=== PATIENT | male | born 1990 | race Caucasian/White ===

== ENCOUNTER 2016-06-03 23:58 | Emergency (ER) | payer OTHER ==
[2016-06-04 00:30] VITALS: TEMP 99
--- NOTE | 2016-06-04 01:29 | XR ---
EXAM: XR Right Ribs and AP Chest, 3 or More Views. CLINICAL HISTORY: Reason: Pain TECHNIQUE: Frontal and oblique views of the right ribs and frontal view of the chest. COMPARISON: No relevant prior studies available. FINDINGS: Lungs: Unremarkable. No consolidation. Pleural space: Unremarkable. No pneumothorax. Heart: Unremarkable. No cardiomegaly. Mediastinum: Unremarkable. Bones/joints: Unremarkable. No acute fracture. IMPRESSION: Normal right rib x-rays.
[2016-06-04] MEDS ORDERED: IBUPROFEN 400 MG TAB PO STA (02:31)
--- NOTE | 2016-06-04 02:31 | ED ---
General Adult HPI - General Chief complaint: Recheck/Abnormal Lab/Rx Stated complaint: Poss Broken Rib Time Seen by Provider: 06/04/16 02:18 Source: patient Mode of arrival: ambulatory Limitations: no limitations - History of Present Illness Initial comments: This patient is a 26-year-old man who presents to be evaluated for right anterior chest wall pain. The patient states that on he was leaning over a 2 x 4 reaching down into a chicken coop and he felt a pop in the chest wall. Since that time he has had sharp pains that are brought on by movement or if he takes a very large breath. The patient denies any associated symptoms. He is not having fevers or chills, dyspnea, productive cough or hemoptysis, palpitations. -: days(s) Location: chest Radiation: non-radiation Quality: aching, sharp Consistency: constant Improves with: none Worsens with: movement Associated Symptoms: denies other symptoms Treatments Prior to Arrival: none - Related Data Previous Rx's Medication Instructions Recorded Cephalexin [Keflex] 500 mg PO Q6HR #40 cap 07/18/13 Hydrocodone/Acetaminophen [Otho 1 each PO Q6HR PRN #20 tab 06/04/16 5-325] Ibuprofen [Motrin] 800 mg PO Q8HR PRN #20 tab 06/04/16 Allergies Allergy/AdvReac Type Severity Reaction Status Date / Time No Known Allergies Allergy Verified 06/04/16 00:29 Review of Systems ROS Statement: Those systems with pertinent positive or pertinent negative responses have been documented in the HPI. ROS Other: All systems not noted in ROS Statement are negative. Constitutional: Denies: fever, chills Respiratory: Denies: cough, dyspnea, hemoptysis Cardiovascular: Reports: as per HPI, chest pain. Denies: palpitations, dyspnea on exertion, edema, syncope Gastrointestinal: Denies: abdominal pain, vomiting, diarrhea, melena, hematochezia Genitourinary: Denies: hematuria Musculoskeletal: Denies: back pain Hematological/Lymphatic: Denies: easy bleeding Past Medical History Additional Past Medical History / Comment(s): BACK PAIN History of Any Multi-Drug Resistant Organisms: None Reported Past Surgical History: Hernia Repair Past Psychological History: No Psychological Hx Reported Smoking Status: Current every day smoker Past Alcohol Use History: Rare Past Drug Use History: Marijuana General Exam Limitations: no limitations General appearance: alert, in no apparent distress, obese Head exam: Present: atraumatic, normocephalic Respiratory exam: Present: normal lung sounds bilaterally, chest wall tenderness (There is some tenderness over probably ribs 6 and 7 anteriorly. No palpable deformity.). Absent: respiratory distress, wheezes, rales, rhonchi, stridor, accessory muscle use, decreased breath sounds, prolonged expiratory Cardiovascular Exam: Present: regular rate, normal rhythm, normal heart sounds. Absent: systolic murmur, diastolic murmur, rubs, gallop GI/Abdominal exam: Present: soft. Absent: distended, tenderness, guarding, rebound, mass Extremities exam: Present: normal inspection, normal capillary refill. Absent: pedal edema, calf tenderness Back exam: Present: normal inspection. Absent: tenderness, CVA tenderness (R), CVA tenderness (L), paraspinal tenderness, vertebral tenderness Neurological exam: Present: alert Skin exam: Present: warm, dry, intact, normal color. Absent: rash Course Vital Signs 06/04/16 00:26 Temperature 99.0 F Pulse Rate 84 Respiratory 18 Rate Blood Pressure 127/74 O2 Sat by Pulse 98 Oximetry Disposition Clinical Impression: Chest wall injury Disposition: HOME SELF-CARE Condition: Good Instructions: Chest Wall Pain (ED) Prescriptions: Hydrocodone/Acetaminophen [Otho 5-325] 1 each PO Q6HR PRN #20 tab PRN Reason: Pain Ibuprofen [Motrin] 800 mg PO Q8HR PRN #20 tab PRN Reason: Pain Referrals: Yareli Verduzco MD [Primary Care Provider] - 1-2 days
[2016-06-04] MEDS ORDERED: HYDROcodone/APAP 5-325MG 1 EACH TAB PO STA (02:32)
[2016-06-04 02:39] VITALS: BP 134/81; PULSE 75; RESP 16
== END 2016-06-04 02:39 | disposition home or self-care (01) ==
LOC: EC 23:58
DX: S29.9XXA Unspecified injury of thorax, initial encounter (principal); F17.200 Nicotine dependence, unspecified, uncomplicated; X58.XXXA Exposure to other specified factors, initial encounter
CPT/HCPCS: 99283

== ENCOUNTER → 2016-06-21 | Outpatient (CLI) | payer OTHER ==
--- NOTE | 2016-06-21 11:48 | XR ---
PA chest x-ray with right RIBS HISTORY: Rib pain Frontal view of the chest and 4 views of the right ribs submitted and correlated to prior exam May Minimal displaced rib fractures present anteriorly on the right at seventh and eighth levels. No pneu mothorax or pleural effusion. IMPRESSION: Anterior rib fractures seventh and eighth ribs show minimal displacement.
== END | disposition home or self-care (01) ==
LOC: RADXRMAIN 10:32
PROVIDERS: ATTEND Family Medicine
DX: S22.41XA Multiple fractures of ribs, right side, initial encounter for closed fracture (principal); X58.XXXA Exposure to other specified factors, initial encounter

== ENCOUNTER → 2017-04-01 | Outpatient (CLI) | payer OTHER ==
--- NOTE | 2017-04-01 14:36 | CT ---
EXAMINATION TYPE: CT chest wo con DATE OF EXAM: 04/01/2017 COMPARISON: NONE HISTORY: Patient complains of difficulty breathing and new diagnosis of emphysema. CT DLP: 301 mGycm, Automated exposure control for dose reduction was used. CONTRAST: None TECHNIQUE: High-resolution CT images were obtained at 1 mm thick sections at 10 mm intervals. Studies performed without intravenous contrast. Prone and supine imaging is performed. There are sections of be excluded from the [id number] high-resolution technique. FINDINGS: Portion of the thyroid visualized is normal. The thymus appears unremarkable. No suspicious lung nodules or focal infiltrates are present. Images appear stable between prone and s upine views. No enlarged mediastinal or hilar adenopathy is evident. The ascending aorta diameter at the level o f the main pulmonary artery is 2.7 cm. The main pulmonary artery diameter at the bifurcation is 1.[address] sections are obtained through the upper abdomen. Abdomen is essentially unremarkable. IMPRESSIONS: 1. Unremarkable high resolution CT chest.
== END | disposition home or self-care (01) ==
LOC: RADCTMAIN 08:59
PROVIDERS: ATTEND Internal Medicine
DX: R06.02 Shortness of breath (principal); R05 Cough
CPT/HCPCS: 71250

== ENCOUNTER → 2017-04-30 | Outpatient (CLI) | payer OTHER ==
[2017-04-30 08:22] LABS: ALT 71 U/L (21-72); AST 34 U/L (17-59); Albumin 4.1 g/dL (3.5-5.0); Alkaline Phosphatase 43 U/L (38-126); Anion Gap 10 mmol/L; Blood Urea Nitrogen 18 mg/dL (9-20); Calcium 9.4 mg/dL (8.4-10.2); Carbon Dioxide 30 mmol/L (22-30); Chloride 103 mmol/L (98-107); Glucose 94 mg/dL (74-99); Potassium 4.5 mmol/L (3.5-5.1); Sodium 143 mmol/L (137-145); Total Bilirubin 0.5 mg/dL (0.2-1.3); Total Protein 6.8 g/dL (6.3-8.2)
== END | disposition home or self-care (01) ==
LOC: LABWHC1 07:23
PROVIDERS: ATTEND Internal Medicine
DX: E88.01 Alpha-1-antitrypsin deficiency (principal)
CPT/HCPCS: 36415; 80053

== ENCOUNTER → 2017-04-30 | Outpatient (CLI) | payer OTHER ==
--- NOTE | 2017-04-30 11:40 | US ---
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 EXAM MEASUREMENTS: Liver Length: 16.4 cm Gallbladder Wall: 0.2 cm CBD: 0.5 cm Right Kidney: 11.4 x 5.3 x 5.9 cm Technically difficult and limited study due to patient body habitus Pancreas: visualized portions wnl, limited by overlying midline bowel gas Liver: heterogeneous, increased echogenicity, increased attenuation, limited by rib shadowing and ov erlying bowel gas Gallbladder: appears wnl, limited by overlying bowel Evidence for sonographic Waddell's sign: no CBD: visualized portions wnl, limited by overlying bowel gas Right Kidney: appears wnl, limited by overlying bowel gas IMPRESSION: 1. Examination limited due to bowel gas. 2. No suspicious acute changes. 3. Mild fatty infiltration liver.
== END | disposition home or self-care (01) ==
LOC: RADUSWWP 06:59
PROVIDERS: ATTEND Internal Medicine
DX: K76.0 Fatty (change of) liver, not elsewhere classified (principal); E88.01 Alpha-1-antitrypsin deficiency
CPT/HCPCS: 76705

== ENCOUNTER → 2019-03-26 | Outpatient (CLI) | payer OTHER ==
--- NOTE | 2019-03-26 10:34 | MR ---
EXAMINATION TYPE: MR brain wo con DATE OF EXAM: 03/26/2019 COMPARISON: NONE HISTORY: vertigo, ear pressure TECHNIQUE: T1-weighted sagittal, T2, FLAIR, and diffusion axial, and T2 coronal coronal views of the brain are submitted. FINDINGS: There is no evidence of acute ischemia. Artifact overlying the frontal lobes is noted. The ventricles , basal cisterns, and sulci overlying the convexities are consistent with the patient's age. There i s no mass effect. Craniocervical junction maintained. Sella turcica has a normal appearance. There is a patient ocular gaze to the left which may be incidental but should be correlated clinicall y. No cerebellopontine angle mass. Changes of mild chronic sinusitis. Mild right chronic mastoiditis. IMPRESSION: 1. No acute intracranial process 2. Changes of chronic sinusitis and mild right mastoiditis
== END | disposition home or self-care (01) ==
LOC: RADMRIMAIN 09:42
PROVIDERS: ATTEND Family Medicine
DX: H81.13 Benign paroxysmal vertigo, bilateral (principal); H93.8X3 Other specified disorders of ear, bilateral
CPT/HCPCS: 70551